=== PATIENT | male | born 1980 | race Caucasian/White ===

== ENCOUNTER 2025-03-03 07:04 | Outpatient (CLI) | payer OTHER | END 2025-03-03 07:05 | disposition home or self-care (01) | LOC: CSHCT 07:04 | PROVIDERS: ATTEND Internal Medicine Hematology & Oncology | DX: C49.8 Malignant neoplasm of overlapping sites of connective and soft tissue (principal); C79.89 Secondary malignant neoplasm of other specified sites | CPT/HCPCS: 71260; 74177 ==

== ENCOUNTER 2025-03-24 08:59 | Outpatient (CLI) | payer OTHER | END 2025-03-24 09:00 | disposition home or self-care (01) | LOC: CSHRAD 08:59 | PROVIDERS: ATTEND Internal Medicine Hematology & Oncology | DX: C49.8 Malignant neoplasm of overlapping sites of connective and soft tissue (principal); C79.89 Secondary malignant neoplasm of other specified sites | CPT/HCPCS: 93005; 93010 ==